=== PATIENT | female | born 1995 | race Caucasian/White ===

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

== ENCOUNTER 2017-07-29 16:27 | Emergency (ER) | payer MEDICAID ==
--- NOTE | 2017-07-29 16:37 | EDPHY ---
H & P Stated Complaint: pelvic cramping/n/v menstruating now Source: Patient Exam Limitations: No limitations - Personal History LMP (Females 10-55): Now Current Tetanus/Diphtheria Vaccine: Yes - Medical/Surgical History Hx Asthma: Yes Hx Chronic Respiratory Disease: No Hx Diabetes: No Hx Cardiac Disease: No Hx Renal Disease: No Hx Cirrhosis: No Hx Alcoholism: No Hx HIV/AIDS: No Hx Splenectomy or Spleen Trauma: No Other PMH: ? endometriosis - Social History Smoking Status: Never smoked <Hanna Ashraf - Last Filed: 07/29/17 17:05> <Adan Kilgore - Last Filed: 07/29/17 20:31> Time Seen by Provider: 07/29/17 16:36 HPI/ROS: HPI: A 21-year-old female who presents with Chief Complaint: pelvic cramping/n/v menstruating now Location:pelvic Quality: Cramping Duration: 1-3 hours prior to arrival Signs and Symptoms: no fever, + nausea, + vomiting, no hematemesis, no blood in stool, no abdominal bloating, no diarrhea, no back pain, no urinary symptoms, no vaginal discharge/trauma, no indigestion, no chest pain, no shortness of breath Timing: Acute, rapid onset Severity: Moderate Context: Patient just started her menses approximately 1-3 hours prior to arrival; has gone through 2 tampons in 3 hr; presents with sudden onset of right greater than left pelvic cramping accompanied by excessive bleeding. Patient reports that this is normal for her. Concern was that she was in the shower and felt lightheaded, became nauseous and vomited x1 stomach contents. She called her friend who advised that she needs come to the emergency room. Patient's mother has a history of endometriosis and patient believes she may have the same diagnosis. NuvaRing placed greater than 2 years ago- no oral control since due to intolerance. Patient reports that she does not have an OBGYN locally. Modifying Factors: None Comment: ROS: see HPI Constitutional: No fever, no chills, no weight loss Eyes: No blurred vision Respiratory: No shortness of breath, no cough Cardiovascular: No chest pain, no palpitations Gastrointestinal: No nausea, no vomiting, no diarrhea, no hematemesis, no blood in stool Genitourinary: No dysuria, no blood in urine Extremities: No myalgias, no edema Neurologic: No weakness, no numbness Skin: No rashes, no petechiae Hematologic: No bruising, no bleeding MEDICAL/SURGICAL/SOCIAL HISTORY: Medical history: ? Endometriosis Surgical history: Denies Social history: Student. Family history noncontributory. CONSTITUTIONAL: Polite and cooperative, nontoxic-appearing teenage white female , awake and alert, no obvious distress HEENT: Atraumatic and normocephalic, PERRL, EOMI. Nares patent; no rhinorrhea; no nasal mucosal edema. Tympanic membranes clear. Oropharynx clear, no exudate and moist pink mucosa. Airway patent. No lymphadenopathy. No meningismus. Cardiovascular: Normal S1/S2, regular rate, regular rhythm, without murmur rub or gallop. PULMONARY/CHEST: Symmetrical and nontender. Clear to auscultation bilaterally. Good air movement. No accessory muscle usage. ABDOMEN: Soft, nondistended, suprapubic tenderness, no rebound, no guarding, no peritoneal signs, no masses or organomegaly. No CVAT. PELVIC: Politely decline. Wishes to wait for OBGYN follow-up. EXTREMITIES: 2/2 pulses, strength 5/5, no deformities, no clubbing, no cyanosis or edema. NEUROLOGICAL: no focal neuro deficits. GCS 15. SKIN: Warm and dry, pallor, no erythema. no rash. Good capillary refill. (Hanna Ashraf) Constitutional: Initial Vital Signs Temperature (C) 36.7 C 07/29/17 16:31 Heart Rate 75 07/29/17 16:31 Respiratory Rate 17 07/29/17 16:31 Blood Pressure 119/72 07/29/17 16:31 O2 Sat (%) 97 07/29/17 16:31 O2 Delivery Mode Room Air Allergies/Adverse Reactions: No Known Allergies Allergy (Unverified 05/27/15 16:22) Home Medications: Medication Instructions Recorded ALPRAZolam [Xanax 0.5 MG (RX)] 05/27/15 Albuterol Hfa Anes Only [Proair 2 puffs IH QID PRN #1 mdi 05/27/15 Hfa Anes Only] Cyclobenzaprine [Flexeril 10 MG 10 mg PO TID PRN #15 tab 07/29/17 (*)] Ondansetron Odt [Zofran Odt 4 mg 4 mg PO Q4 PRN #20 tab 07/29/17 (RX)] traZODone 07/29/17 Medical Decision Making <Hanna Ashraf - Last Filed: 07/29/17 17:05> - Diagnostics Imaging: Discussed imaging studies w/ residential property consultant Radiologist <Adan Kilgore - Last Filed: 07/29/17 20:31> - Diagnostics Imaging Results: Imaging Impressions Pelvic/Renal Ultrasound 07/29/17 16:38 Impression: Normal exam. Findings were discussed with Dr. Adan Kilgore at 17:40, on 07/29/2017. ED Course/Re-evaluation: Labs, IV fluids, IV medications, pelvic ultrasound ordered Suspect dysfunctional uterine bleeding. Low yield for ovarian torsion/ectopic Vital signs reviewed upon arrival and no systemic signs. 1650: Given 1 L normal saline, IV Toradol, p.o. Flexeril with adequate relief of pain 1705: End of shift. Signed over to Dr. Kilgore pending results of laboratory studies and pelvic ultrasound. Will need OBGYN follow-up for which I have already discussed with patient. This patient was seen under the supervision of my secondary supervising physician. I evaluated care for this patient independently. Discussed this patient with Dr. Kilgore who did not see the patient. (Hanna Ashraf) 6:00 p.m. We discussed the ultrasound lab results which are all reassuring. The patient states that she does have some dysuria but that is constant. I asked if she would like to give us a urine sample and have his tested and she declined. She also declined pelvic examination. She states that she is not at risk for STDs. She has no drainage or discharge. She has not had a fever. Her abdominal exam is benign. We will refer her to OBGYN. She is concerned about endometriosis. She has been on several hormones in the past without improvement. She does feel much better after the Toradol, Zofran and Flexeril. I encouraged her to continue taking ibuprofen and I will prescribe Zofran and Flexeril to be used as needed. (Adan Kilgore) Differential Diagnosis: Abdominal pain in a female including but not limited to ovarian cyst, pelvic inflammatory disease, ovarian torsion, urinary tract infection, and appendicitis. (Hanna Ashraf) - Data Points Laboratory Results: Laboratory Results 07/29/17 16:55 07/29/17 16:55 18 18 07/29/17 16:55 16:55 16:55 WBC 6.86 10^3/uL 10^3/uL (3.80-9.50) RBC 4.56 10^6/uL 10^6/uL (4.18-5.33) Hgb 12.7 g/dL g/dL (12.6-16.3) Hct 38.7 % % (38.0-47.0) MCV 84.9 fL fL (81.5-99.8) MCH 27.9 pg pg (27.9-34.1) MCHC 32.8 g/dL g/dL (32.4-36.7) RDW 14.6 % % (11.5-15.2) Plt Count 195 10^3/uL 10^3/uL (150-400) MPV 10.2 fL fL (8.7-11.7) Neut % (Auto) 67.5 % % (39.3-74.2) Lymph % (Auto) 22.7 % % (15.0-45.0) [place] % (Auto) 8.7 % % (4.5-13.0) Eos % (Auto) 0.1 % L % (0.6-7.6) Baso % (Auto) 0.6 % % (0.3-1.7) Nucleat RBC Rel Count 0.0 % % (0.0-0.2) Absolute Neuts (auto) 4.62 10^3/uL 10^3/uL (1.70-6.50) Absolute Lymphs (auto) 1.56 10^3/uL 10^3/uL (1.00-3.00) Absolute Monos (auto) 0.60 10^3/uL 10^3/uL (0.30-0.80) Absolute Eos (auto) 0.01 10^3/uL L 10^3/uL (0.03-0.40) Absolute Basos (auto) 0.04 10^3/uL 10^3/uL (0.02-0.10) Absolute Nucleated RBC 0.00 10^3/uL 10^3/uL (0-0.01) Immature Gran % 0.4 % % (0.0-1.1) Immature Gran # 0.03 10^3/uL 10^3/uL (0.00-0.10) Sodium 141 mEq/L mEq/L (135-145) Potassium 4.1 mEq/L mEq/L (3.5-5.2) Chloride 109 mEq/L mEq/L (97-110) Carbon Dioxide 21 mEq/l L mEq/l (22-31) Anion Gap 11 mEq/L mEq/L (8-16) BUN 11 mg/dL mg/dL (7-23) Creatinine 0.6 mg/dL mg/dL (0.6-1.0) Estimated GFR > 60 Glucose 81 mg/dL mg/dL (70-100) Calcium 9.2 mg/dL mg/dL (8.5-10.4) Total Bilirubin 0.6 mg/dL mg/dL (0.1-1.4) AST 29 IU/L IU/L (14-46) ALT 31 IU/L IU/L (9-52) Alkaline Phosphatase 96 IU/L IU/L (38-126) Total Protein 6.8 g/dL g/dL (6.3-8.2) Albumin 4.1 g/dL g/dL (3.5-5.0) Beta HCG, Qual NEGATIVE Medications Given: Discontinued Medications Cyclobenzaprine HCl (Flexeril) 10 mg PO EDNOW ONE Stop: 07/29/17 16:47 Last Admin: 07/29/17 17:03 Dose: 10 mg Sodium Chloride (Ns) 1,000 mls @ 0 mls/hr IV ONCE ONE; Wide Open PRN Reason: Protocol Stop: 07/29/17 16:46 Last Admin: 07/29/17 17:03 Dose: 1,000 mls Ketorolac Tromethamine (Toradol) 30 mg IVP EDNOW ONE Stop: 07/29/17 16:46 Last Admin: 07/29/17 17:03 Dose: 30 mg Ondansetron HCl (Zofran Odt) 4 mg PO EDNOW ONE Stop: 07/29/17 16:40 Last Admin: 07/29/17 17:03 Dose: 4 mg Departure <Hanna Ashraf - Last Filed: 07/29/17 17:05> <Adan Kilgore - Last Filed: 07/29/17 20:31> - Departure Disposition: Home, Routine, Self-Care Clinical Impression: Dysfunctional uterine bleeding Condition: Fair Instructions: Cyclobenzaprine (By mouth), Ondansetron (By mouth), Dysfunctional Uterine Bleeding (ED) Referrals: NONE *PRIMARY CARE P,. [Primary Care Provider] - As per Instructions Lola Weaver MD [Medical Doctor] - As per Instructions Maude Rutledge DO [Doctor of Osteopathy] - As per Instructions Stand Alone Forms: Work Excuse Prescriptions: Cyclobenzaprine [Flexeril 10 MG (*)] 10 mg PO TID PRN #15 tab PRN Reason: Spasms Ondansetron Odt [Zofran Odt 4 mg (RX)] 4 mg PO Q4 PRN #20 tab PRN Reason: Nausea & Vomiting
[2017-07-29] MEDS ORDERED: ONDANSETRON DISINTEGRATING 4 MG TAB PO ONE (16:39)
[2017-07-29] MEDS ORDERED: NS 1,000 ML IV ONE (16:45)
[2017-07-29] MEDS ORDERED: KETOROLAC 30 MG/1 ML SDV IVP ONE (16:45)
[2017-07-29] MEDS ORDERED: CYCLOBENZAPRINE 10 MG TAB PO ONE (16:46)
[2017-07-29 17:09] LABS: PLATELET COUNT 195 10^3/uL (150-400)
[2017-07-29 18:10] VITALS: BP 112/78
[2017-07-29] MEDS ORDERED: ACETAMINOPHEN 500 MG TAB ONE (18:25)
[2017-07-29] MEDS ORDERED: ONDANSETRON DISINTEGRATING 4 MG TAB ONE (18:30)
== END 2017-07-29 18:09 | disposition home or self-care (01) ==
DX: N93.8 Other specified abnormal uterine and vaginal bleeding (principal); J45.909 Unspecified asthma, uncomplicated
CPT/HCPCS: 96374; J1885

== ENCOUNTER 2017-10-04 20:52 | Emergency (ER) | payer MEDICAID ==
--- NOTE | 2017-10-04 21:37 | EDPHY ---
H & P Stated Complaint: pelvic cramping/pain, burning with urination Time Seen by Provider: 10/04/17 21:37 - Personal History LMP (Females 10-55): Over 28 Days Ago Current Tetanus/Diphtheria Vaccine: Yes - Medical/Surgical History Hx Asthma: No Hx Chronic Respiratory Disease: No Hx Diabetes: No Hx Cardiac Disease: No Hx Renal Disease: No Hx Cirrhosis: No Hx Alcoholism: No Hx HIV/AIDS: No Hx Splenectomy or Spleen Trauma: No Other PMH: ? endometriosis - Social History Smoking Status: Never smoked Constitutional: Initial Vital Signs Temperature (C) 36.5 C 10/04/17 20:58 Heart Rate 112 H 10/04/17 20:58 Respiratory Rate 16 10/04/17 20:58 Blood Pressure 120/73 10/04/17 20:58 O2 Sat (%) 96 10/04/17 20:58 O2 Delivery Mode Room Air Allergies/Adverse Reactions: No Known Allergies Allergy (Unverified 05/27/15 16:22) Home Medications: Medication Instructions Recorded ALPRAZolam [Xanax 0.5 MG (RX)] 05/27/15 traZODone 07/29/17 Cephalexin [Keflex (RX)] 500 mg PO TID #30 cap 10/04/17 Phenazopyridine HCl [Pyridium] 200 mg PO TID #6 tab 10/04/17 Vistaril 10/04/17 Medical Decision Making ED Course/Re-evaluation: CHIEF COMPLAINT: Pelvic pain HISTORY OF PRESENT ILLNESS: This patient is a 21 year old female complaining of pelvic pain and cramping. Today, she developed "burning" cramps during intercourse. The discomfort extended up her back. She had associated nausea. She called the Medicaid nurse line, and staff recommended she present to the ED. She instead waited several hours for symptoms to resolve, but her pain increased. The discomfort waxes and wanes. She has had dysuria. She states her discomfort does not feel similar to prior UTIs. She denies fever, diarrhea, vomiting, or other associated symptoms. REVIEW OF SYSTEMS: A 10 point review of systems was performed and is negative with the exception of the elements mentioned in the history of present illness. PHYSICAL EXAM: HR, BP, O2 Sat, RR. Temp noted General Appearance: Alert, well hydrated, appropriate, and non-toxic appearing. Head: Atraumatic without scalp tenderness or obvious injury Eyes: Pupils equal, round, reactive to light and accommodation, EOMI, no trauma , no injection. Ears: Clear bilaterally, no perforation, normal landmarks Nose: Atraumatic, no rhinorrhea, clear. Throat: There is no erythema or exudates, no lesions, normal tonsils, mucus membranes moist. Neck: Supple, 2+ carotid upstroke, nontender, no lymphadenopathy. Respiratory: No retractions, no distress, no wheezes, and no accessory muscle use. Lungs are clear to auscultation bilaterally. Cardiovascular: Regular rate and rhythm, no murmurs, rubs, or gallops. Bilateral carotid, radial, dorsalis pedis, and posterior tibial pulses intact. Good capillary refill all extremities. Gastrointestinal: Tenderness in suprapubic region. Bilateral CVA tenderness, left greater than right. Abdomen is soft, non-distended, no masses, no rebound, no guarding, no peritoneal signs. Musculoskeletal: Normal active ROM of all extremities, atraumatic. Neurological: Alert, appropriate, and interactive. The patient has normal DTRs and non-focal cranial nerves, motor, sensory, and cerebellar exam. Skin: No rashes, good turgor, no nodules on palpation. Past medical history: Endometriosis Past surgical history: Noncontributory Family history: Noncontributory Social history: Significant other at bedside. Lives in [place]. Does not abuse tobacco, drugs, or alcohol. DIFFERENTIAL DIAGNOSIS: The differential diagnosis for the patient's abdominal pain included but was not limited to ovarian cyst, pelvic inflammatory disease, ovarian torsion, urinary tract infection, ectopic , cholecystitis, and appendicitis. MEDICAL DECISION 21 y/o female presents with pelvic cramping and dysuria. Bilateral CVA tenderness on exam, though the patient jumps each time I try to examine her abdomen. Symptoms and exam consistent with possible UTI. Plan for UA prior to possible imaging studies. UA positive for UTI. Plan to administer 500mg PO Keflex. Alerted by nurse that patient is concerned for . LMP three weeks ago. Patient reportedly mentioned a positive home test. Plan for urine test. test negative. Plan to discharge home in good condition with prescription for Keflex and Pyridium for symptom relief. I will provide [place] for pain relief. - Data Points Laboratory Results: 10/04/17 10/04/17 21:30 21:10 Urine Color YELLOW Urine Appearance HAZY Urine pH 5.0 (5.0-7.5) Ur Specific [place] 1.020 (1.002-1.030) Urine Protein NEGATIVE (NEGATIVE) Urine Ketones NEGATIVE (NEGATIVE) Urine Blood NEGATIVE (NEGATIVE) Urine Nitrate NEGATIVE (NEGATIVE) Urine Bilirubin NEGATIVE (NEGATIVE) Urine Urobilinogen 2.0 EU H EU (0.2-1.0) Ur Leukocyte Esterase 3+ H (NEGATIVE) Urine RBC 1-3 /hpf /hpf (0-3) Urine WBC 10-15 /hpf H /hpf (0-3) Ur Epithelial Cells TRACE /lpf /lpf (NONE-1+) Urine Bacteria TRACE /hpf H /hpf (NONE SEEN) Urine Mucus 2+ /lpf H /lpf (NONE-1+) Urine Glucose NEGATIVE (NEGATIVE) Urine Test NEGATIVE Medications Given: Discontinued Medications Cephalexin HCl (Keflex) 500 mg PO EDNOW ONE PRN Reason: Protocol Stop: 10/04/17 21:49 Last Admin: 10/04/17 21:54 Dose: 500 mg Departure - Departure Disposition: Home, Routine, Self-Care Clinical Impression: Urinary tract infection Qualifiers: Urinary tract infection type: acute cystitis Hematuria presence: without hematuria Qualified Code(s): N30.00 - Acute cystitis without hematuria Condition: Good Instructions: Urinary Tract Infection in Women (ED) Additional Instructions: Follow-up with your primary doctor within 2-3 days. Take Keflex and Pyridium as prescribed. Take [place] as prescribed as needed for severe pain. Return to the Emergency Department for fever, worsening pain, flank pain or failure to improve within 72 hours. It is possible that the bacteria causing your infection is resistant to the antibiotic we've placed you on. We have sent a urine for culture, if this comes back with a resistant bacteria, we will call you at the number you provided to us. Referrals: Consuelo Andres MD [Medical Doctor] - As per Instructions Prescriptions: Cephalexin [Keflex (RX)] 500 mg PO TID #30 cap Phenazopyridine HCl [Pyridium] 200 mg PO TID #6 tab Report Scribed for: Cornelio Murdock Report Scribed by: Larissa Delgado Date of Report: 10/04/17 Time of Report: 21:49
[2017-10-04] MEDS ORDERED: CEPHALEXIN 500 MG CAP PO ONE (21:48)
[2017-10-04] MEDS ORDERED: HYDROCOD/APAP 5/325 PREPACK#6 BTL TAKEHOME ONE (22:00)
[2017-10-04 22:15] VITALS: BP 122/74
== END 2017-10-04 22:15 | disposition home or self-care (01) ==
DX: N30.00 Acute cystitis without hematuria (principal); B96.89 Other specified bacterial agents as the cause of diseases classified elsewhere